=== PATIENT | male | born 1950 ===

== ENCOUNTER → 2022-02-02 | Day surgery (SDC) | payer MEDICARE ==
[~2022-02-02] VITALS: Ht 182.8 cm; Wt 127.0 kg
[~2022-02-02] MED LIST: ALLOPURINOL300 MG PO; ASPIRIN ADULT L81 M1 PO; CENTRUM ADULTS1 EACH PO; CLONIDINE0.2 MG PO; COREG25 MG PO; COZAAR100 MG PO; GLIPIZIDE5 MG PO; HYDR25T PO; LIPITOR80 MG PO; MAGNESIUM400 MG PO; OMEPRAZOLE40 MG PO
[2022-02-02 10:55] VITALS: BP 154/56
[2022-02-02 11:50] VITALS: BP 151/73
[2022-02-02 12:08] VITALS: BP 143/68
[2022-02-02 12:19] VITALS: BP 151/73
== END | disposition home or self-care (01) ==
LOC: SDC 01-31 08:00
PROVIDERS: ATTEND Ophthalmology
DX: H25.812 Combined forms of age-related cataract, left eye (principal); I10 Essential (primary) hypertension; E11.9 Type 2 diabetes mellitus without complications; K21.9 Gastro-esophageal reflux disease without esophagitis; F41.9 Anxiety disorder, unspecified; M10.9 Gout, unspecified; I25.10 Atherosclerotic heart disease of native coronary artery without angina pectoris; Z98.890 Other specified postprocedural states; Z79.82 Long term (current) use of aspirin; Z79.899 Other long term (current) drug therapy; Z87.891 Personal history of nicotine dependence